=== PATIENT | male | born 1980 | race Asian ===

== ENCOUNTER 2017-05-09 08:34 | Emergency (ER) | payer OTHER, MEDICAID ==
--- NOTE | 2017-05-09 09:29 | ER Document Report ---
ED Medical Screen (RME) - General Chief Complaint: Probable Seizure Stated Complaint: POSSIBLE SEIZURE Time Seen by Provider: 05/09/17 09:24 Notes: RME DISCLOSURE I have seen this patient as part of a Rapid Medical Evaluation and, if applicable, placed any initially appropriate orders. The patient will be seen and fully evaluated, including a full history and physical exam, by a provider ( in Main ED or Fast Track) when a room becomes available. 36M pmh seizures on aptium and VPA here w reported sz earlier today. States it has been 1 year since his last seizure. He denies missing any doses of his medications. He does have a headache currently and states that he does not normally get headaches after his seizures. The family reports that this time he did not have any shaking but instead was "screaming and appeared to have a headache". TRAVEL OUTSIDE OF THE [place] IN LAST 30 DAYS: No - Related Data Allergies/Adverse Reactions: No Known Allergies Allergy (Verified 05/09/17 08:40) Past Medical History Neurological Medical History: Reports: Hx Seizures Renal/ Medical History: Reports: Hx Kidney Stones Past Surgical History: Reports: Hx Neurologic Surgery - Brain abscess and vagal nerve stimulator. - Immunizations Hx Diphtheria, Pertussis, Tetanus Vaccination: No - unknown Physical Exam - Vital signs Vitals: Temp Pulse Resp BP Pulse Ox 95.4 F L 55 L 16 120/73 98 05/09/17 08:48 05/09/17 08:48 05/09/17 08:48 05/09/17 08:48 05/09/17 08:48 Course - Vital Signs Vital signs: Temp Pulse Resp BP Pulse Ox 95.4 F L 55 L 16 120/73 98 05/09/17 08:48 05/09/17 08:48 05/09/17 08:48 05/09/17 08:48 05/09/17 08:48
--- NOTE | 2017-05-09 10:08 | ER Document Report ---
ED General - General Chief Complaint: Probable Seizure Stated Complaint: POSSIBLE SEIZURE Time Seen by Provider: 05/09/17 09:24 Information source: Patient Notes: HPI-36 years old male with a history of seizure disorder, had a glass of wine last night, early this morning eating he had a seizure, because he woke up and went to the bathroom on the way back he felt like a sleepwalking and then found him on the floor. Currently has no headache dizziness neck pain neck stiffness chest pain abdominal pain nausea vomiting diarrhea. Denies any pain over the upper limbs or lower limbs. REVIEW OF SYSTEMS: CONSTITUTIONAL : Denies fever, chills, or sweats. Denies recent illness. EENT: Denies eye, ear, throat, or mouth pain or symptoms. Denies nasal or sinus congestion or discharge. Denies throat, tongue, or mouth swelling or difficulty swallowing. CARDIOVASCULAR: Denies chest pain. Denies palpitations or racing or irregular heart beat. Denies ankle edema. RESPIRATORY: Denies cough, cold, or chest congestion. Denies shortness of breath, difficulty breathing, or wheezing. GASTROINTESTINAL: Denies abdominal pain or distention. Denies nausea, vomiting , or diarrhea. Denies blood in vomitus, stools, or per rectum. Denies black, tarry stools. Denies constipation. GENITOURINARY: Denies difficulty urinating, painful urination, burning, frequency, blood in urine, or discharge. MUSCULOSKELETAL: Denies back or neck pain or stiffness. Denies joint pain or swelling. SKIN: Denies rash, lesions or sores. HEMATOLOGIC : Denies easy bruising or bleeding. LYMPHATIC: Denies swollen, enlarged glands. NEUROLOGICAL: Denies confusion or altered mental status. Denies passing out or loss of consciousness. Denies dizziness or lightheadedness. Denies headache. Denies weakness or paralysis or loss of use of either side. Denies problems with gait or speech. Denies sensory loss, numbness, or tingling. Denies seizures. PSYCHIATRIC: Denies anxiety or stress. Denies depression, suicidal ideation, or homicidal ideation. ALL OTHER SYSTEMS REVIEWED AND NEGATIVE. Dictation was performed using [employer] voice recognition software PHYSICAL EXAMINATION: GENERAL: Well-appearing, well-nourished and in no acute distress. HEAD: Atraumatic, normocephalic. EYES: Pupils equal round and reactive to light, extraocular movements intact, sclera anicteric, conjunctiva are normal. ENT: Nares patent, oropharynx clear without exudates. Moist mucous membranes. NECK: Normal range of motion, supple without lymphadenopathy LUNGS: Breath sounds clear to auscultation bilaterally and equal. No wheezes rales or rhonchi. HEART: Regular rate and rhythm without murmurs ABDOMEN: Soft, nontender, nondistended abdomen. No guarding, no rebound. No masses appreciated. Musculoskeletal: Normal range of motion, no pitting or edema. No cyanosis. NEUROLOGICAL: Cranial nerves grossly intact. Normal speech, normal gait. Normal sensory, motor exams PSYCH: Normal mood, normal affect. SKIN: Warm, Dry, normal turgor, no rashes or lesions noted. TRAVEL OUTSIDE OF THE [place] IN LAST 30 DAYS: No - HPI Onset: Just prior to arrival Onset/Duration: Sudden Quality of pain: No pain Severity: None Associated symptoms: None. denies: Allergy/hay fever, Body/muscle aches, Chest pain, Chills, Nonproductive cough, Productive cough, Diarrhea, Drooling, Earache , Fever, Headache, Hoarseness, Hurts to breath, Leg swelling, Nausea, Vomiting, Rhinnorhea, Sinus pain/drainage, Shortness of breath, Slow to respond, Sore throat, Sweating, Weakness, Other Exacerbated by: denies: Denies, Supine, Sitting, Standing, Movement, Walking, Coughing, Deep breathing, Food, Other - Related Data Allergies/Adverse Reactions: No Known Allergies Allergy (Verified 05/09/17 08:40) Past Medical History - Social History Smoking Status: Current Every Day Smoker Chew tobacco use (# tins/day): No Frequency of alcohol use: Occasional Drug Abuse: None Family History: Reviewed & Not Pertinent Patient has suicidal ideation: No Patient has homicidal ideation: No Neurological Medical History: Reports: Hx Seizures Renal/ Medical History: Reports: Hx Kidney Stones. Denies: Hx Peritoneal Dialysis Past Surgical History: Reports: Hx Neurologic Surgery - Brain abscess and vagal nerve stimulator. - Immunizations Hx Diphtheria, Pertussis, Tetanus Vaccination: No - unknown Review of Systems - Review of Systems Notes: As per history of complain EENT: denies: No symptoms reported, See HPI, Eye pain, Eye discharge, Blurred vision, Tearing, Double vision, Ear pain, Ear discharge, Nose pain, Nose congestion, Nose discharge, Sinus pressure, Sinus discharge, Throat pain, Difficulty swallowing, Throat swelling, Mouth pain, Mouth swelling, Dental problem, Vertigo, Other Cardiovascular: denies: No symptoms reported, See HPI, Chest pain, Palpitations , Heart racing, Orthopnea, Dyspnea, Syncope, Dizziness, Lightheaded, Edema, Other, Paroxysmal Nocturnal Dysp Respiratory: denies: No symptoms reported, See HPI, Cough, Hurts to breathe, Hemoptysis, Short of breath, Sputum, Stridor, Wheezing, Other Gastrointestinal: denies: No symptoms reported, See HPI, Abdomen distended, Abdominal pain, Diarrhea, Nausea, Vomiting, Constipation, Blood streaked bowels , Poor appetite, Poor fluid intake, Blood in vomit, Black stools, Rectal bleeding, Last bowel movement, Fecal incontinence, Other Genitourinary: denies: No symptoms reported, See HPI, Burning, Dysuria, Discharge, Frequency, Flank pain, Hematuria, Incontinence, Pain, Urgency, Retention, Other Male Genitourinary: denies: No symptoms reported, See HPI, Erectile dysfunction , Testicular pain, Penile discharge, Other Musculoskeletal: denies: No symptoms reported, See HPI, Back pain, Gout, Joint pain, Joint swelling, Muscle pain, Muscle stiffness, Neck pain, Deformity, Leg swelling, Ankle swelling, Other Skin: denies: No symptoms reported, See HPI, Change in color, Change in hair/ nails, Dryness, Lesions, Lumps, Rash, Other Hematologic/Lymphatic: denies: No symptoms reported, See HPI, Anemia, Blood clots, Easy bleeding, Easy bruising, Enlarged lymph nodes, Swollen glands, Other Physical Exam - Vital signs Vitals: Temp Pulse Resp BP Pulse Ox 95.4 F L 55 L 16 120/73 98 05/09/17 08:48 05/09/17 08:48 05/09/17 08:48 05/09/17 08:48 05/09/17 08:48 Course - Re-evaluation Re-evalutation: 05/09/17 11:59 Given IV fluid - Vital Signs Vital signs: Temp Pulse Resp BP Pulse Ox 95.4 F L 55 L 16 120/73 98 05/09/17 08:48 05/09/17 08:48 05/09/17 08:48 05/09/17 08:48 05/09/17 08:48 - Laboratory Result Diagrams: 05/09/17 10:22 05/09/17 10:22 Laboratory results interpreted by me: 05/09/17 05/09/17 10:22 10:22 WBC 12.2 H MCV 98 H Absolute Neutrophils 9.3 H Carbon Dioxide 33 H Valproic Acid 22.6 L Discharge - Discharge Clinical Impression: Seizure disorder, Cannabis abuse Condition: Fair Disposition: HOME, SELF-CARE Instructions: Seizure, Known Epileptic (FORM[facility]LY [facility], 1928–1983)
--- NOTE | 2017-05-09 10:14 | RADIOLOGY REPORT (SQ) ---
EXAM DESCRIPTION: CT HEAD WITHOUT COMPLETED DATE/TIME: 05/09/2017 10:02 am REASON FOR STUDY: ALCANTARA seizure; eval bleed mass COMPARISON: 01/11/2014 TECHNIQUE: Axial images acquired through the brain without intravenous contrast. Images reviewed wi th bone, brain and subdural windows. Images stored on PACS. All CT scanners at this facility use dose modulation, iterative reconstruction, and/or weight based d osing when appropriate to reduce radiation dose to as low as reasonably achievable (ALARA). [facility]: Dose Right [facility]: CareDose [facility]: Dose Right [facility]: Teradose 4D [facility]: [facility] RADIATION DOSE: CT Rad equipment meets quality standard of care and radiation dose reduction techniq ues were employed. CTDIvol: 64.6 mGy. DLP: 1163 mGy-cm.mGy. LIMITATIONS: None. FINDINGS: VENTRICLES: Prominent. CEREBRUM: No masses. No hemorrhage. No midline shift. Old right MCA territory infarct. Areas of l ow density in the white matter most likely due to chronic micro-vascular ischemic change. No evidenc e for acute infarction. CEREBELLUM: No masses. No hemorrhage. No alteration of density. No evidence for acute infarction. EXTRAAXIAL SPACES: Age-related involutional change. No fluid collections. No masses. ORBITS AND GLOBE: No intra- or extraconal masses. Normal contour of globe without masses. CALVARIUM: No fracture. PARANASAL SINUSES: No fluid or mucosal thickening. SOFT TISSUES: No mass or hematoma. OTHER: No other significant finding. IMPRESSION: CHRONIC CHANGES OF ATROPHY AND MICROVASCULAR ISCHEMIA. NO ACUTE PROCESS. EVIDENCE OF ACUTE STROKE: NO. TECHNICAL DOCUMENTATION: JOB ID: [id number] Quality ID # [id number]: Final reports with documentation of one or more dose reduction techniques (e.g., Au tomated exposure control, adjustment of the mA and/or kV according to patient size, use of iterative reconstruction technique) 2010 [employer]- All Rights Reserved Reading location - IP/workstation name: [email or web address]
[2017-05-09 10:29] LABS: ABSOLUTE LYMPHOCYTES (AUTO) 2.1 10^3/uL (0.5-4.7); ABSOLUTE MONOCYTES (AUTO) 0.7 10^3/uL (0.1-1.4); ABSOLUTE NEUT (AUTO) 9.3 10^3/uL (1.7-8.2); BASOPHILS % (AUTO) 0.4 % (0-2); EOSINOPHILS % (AUTO) 0.2 % (0-6); HEMATOCRIT 49.3 % (37.9-51.0); HEMOGLOBIN 16.8 g/dL (13.5-17.0); LYMPHOCYTES % (AUTO) 17.1 % (13-45); MEAN CORPUSCULAR HEMOGLOBIN 33.3 pg (27.0-33.4); MEAN CORPUSCULAR HGB CONC 34.1 g/dL (32.0-36.0); MEAN CORPUSCULAR VOLUME 98 fl (80-97); MONOCYTES % (AUTO) 5.9 % (3-13); PLATELET COUNT 215 10^3/uL (150-450); RED BLOOD COUNT 5.04 10^6/uL (4.35-5.55); RED CELL DISTRIBUTION WIDTH 13.8 % (11.5-14.0); SEGMENTED NEUTROPHILS % (AUTO) 76.4 % (42-78); TOTAL CELLS COUNTED % (AUTO) 100 %; WHITE BLOOD COUNT 12.2 10^3/uL (4.0-10.5)
[2017-05-09 10:48] LABS: ALANINE AMINOTRANSFERASE 24 U/L (21-72); ALKALINE PHOSPHATASE 49 U/L (38-126); ANION GAP 9 (5-19); ASPARTATE AMINO TRANSFERASE 26 U/L (17-59); BILIRUBIN,DIRECT 0.1 mg/dL (0.0-0.4); BILIRUBIN,TOTAL 0.3 mg/dL (0.2-1.3); BLOOD UREA NITROGEN 18 mg/dL (7-20); CALCIUM 10.2 mg/dL (8.4-10.2); CARBON DIOXIDE 33 mmol/L (22-30); CHLORIDE 101 mmol/L (98-107); GLUCOSE 106 mg/dL (75-110); PHOSPHORUS 2.7 mg/dL (2.5-4.5); POTASSIUM 4.2 mmol/L (3.6-5.0); SODIUM 143.4 mmol/L (137-145); TOTAL PROTEIN 7.7 g/dL (6.3-8.2)
[2017-05-09 11:05] LABS: URINE AMPHETAMINES SCREEN NEGATIVE; URINE BARBITURATES SCREEN NEGATIVE; URINE COCAINE SCREEN NEGATIVE; URINE MARIJUANA (THC) SCREEN UNCONFIRMED POSITIVE; URINE METHADONE SCREEN NEGATIVE; URINE PHENCYCLIDINE SCREEN NEGATIVE
[2017-05-09 11:14] LABS: URINE BENZODIAZEPINES SCREEN NEGATIVE
[2017-05-09 14:38] VITALS: BP 118/79
== END 2017-05-09 14:38 | disposition home or self-care (01) ==
LOC: ER 08:34
DX: G40.909 Epilepsy, unspecified, not intractable, without status epilepticus (principal); F12.10 Cannabis abuse, uncomplicated; F17.200 Nicotine dependence, unspecified, uncomplicated
CPT/HCPCS: 36415; 70450; 80053; 80164; 80307; 83735; 84100; 85025; 99284

== ENCOUNTER 2017-07-26 15:19 | Emergency (ER) | payer OTHER, MEDICAID ==
[2017-07-26] MEDS ORDERED: LEVETIRACETAM 1000 MG/NACL-ISO 1,000 MG/100 ML RTUPB IV ONE (16:14)
[2017-07-26] MEDS ORDERED: NORMAL SALINE 1000 ML 1,000 ML IV ONE (16:14)
[2017-07-26] MEDS ORDERED: ONDANSETRON 4 MG TAB.RAPDIS PO ONE (16:14)
--- NOTE | 2017-07-26 16:16 | ER Document Report ---
ED Medical Screen (RME) - General Chief Complaint: Seizure Stated Complaint: VOMITING Time Seen by Provider: 07/26/17 16:15 TRAVEL OUTSIDE OF THE [place] IN LAST 30 DAYS: No - HPI Notes: 07/26/17 16:15 Patient with 2 seizures a last seizure was in April unable take his antiseizure medication today because of nausea vomiting symptoms for IV hydration and anti- emetics. Will give the patient a dose of Keppra lives here in ER. Takes Actonel and Depakote - Related Data Allergies/Adverse Reactions: No Known Allergies Allergy (Verified 07/26/17 16:12) Past Medical History - Social History Chew tobacco use (# tins/day): No Frequency of alcohol use: Occasional Drug Abuse: None Neurological Medical History: Reports: Hx Seizures Renal/ Medical History: Reports: Hx Kidney Stones. Denies: Hx Peritoneal Dialysis Past Surgical History: Reports: Hx Neurologic Surgery - Brain abscess and vagal nerve stimulator. - Immunizations Hx Diphtheria, Pertussis, Tetanus Vaccination: No - unknown Review of Systems - Review of Systems Gastrointestinal: Diarrhea, Nausea Physical Exam - Vital signs Vitals: Temp Pulse Resp BP Pulse Ox 98.7 F 48 L 20 134/72 H 99 07/26/17 15:31 07/26/17 15:31 07/26/17 15:31 07/26/17 15:31 07/26/17 15:31 - Respiratory Respiratory status: No respiratory distress Chest status: Nontender Breath sounds: Normal Chest palpation: Normal Course - Vital Signs Vital signs: Temp Pulse Resp BP Pulse Ox 98.7 F 48 L 20 134/72 H 99 07/26/17 15:31 07/26/17 15:31 07/26/17 15:31 07/26/17 15:31 07/26/17 15:31
[2017-07-26 16:38] LABS: ABSOLUTE BASOPHILS # (AUTO) 0.1 10^3/uL (0.0-0.2); ABSOLUTE MONOCYTES (AUTO) 0.7 10^3/uL (0.1-1.4); ABSOLUTE NEUT (AUTO) 10.5 10^3/uL (1.7-8.2); BASOPHILS % (AUTO) 0.7 % (0-2); EOSINOPHILS % (AUTO) 0.2 % (0-6); HEMATOCRIT 46.8 % (37.9-51.0); HEMOGLOBIN 15.9 g/dL (13.5-17.0); LYMPHOCYTES % (AUTO) 14.6 % (13-45); MEAN CORPUSCULAR HEMOGLOBIN 33.3 pg (27.0-33.4); MEAN CORPUSCULAR HGB CONC 34.1 g/dL (32.0-36.0); MEAN CORPUSCULAR VOLUME 98 fl (80-97); MONOCYTES % (AUTO) 5.5 % (3-13); PLATELET COUNT 237 10^3/uL (150-450); RED BLOOD COUNT 4.79 10^6/uL (4.35-5.55); RED CELL DISTRIBUTION WIDTH 13.7 % (11.5-14.0); TOTAL CELLS COUNTED % (AUTO) 100 %; WHITE BLOOD COUNT 13.3 10^3/uL (4.0-10.5)
[2017-07-26] MEDS ORDERED: METOCLOPRAMIDE HCL INJ/PF 10 MG/2 ML SDV IV ONE (17:28)
--- NOTE | 2017-07-26 17:28 | ER Document Report ---
ED General - General Mode of Arrival: Medic Information source: Patient TRAVEL OUTSIDE OF THE [place] IN LAST 30 DAYS: No <ART SHABAZZ - Last Filed: 07/26/17 19:57> <ARNOL VASQUES - Last Filed: 07/26/17 20:54> - General Chief Complaint: Seizure Stated Complaint: VOMITING Time Seen by Provider: 07/26/17 16:15 Notes: Patient is a 37 year old male with epilepsy presents to the emergency department complaining of a possible seizure onset this morning and vomiting onset last night. Patient states that he has had a decreased appetite lately due to stress and when he does eat, he proceeds to vomit. He further states he may have missed one of his seizure medications last night. During his seizure this morning, patient states he felt like he may have pulled his shoulder. Patient is currently taking Aptiom and Depakote. (ART SHABAZZ) - Related Data Allergies/Adverse Reactions: No Known Allergies Allergy (Verified 07/26/17 16:12) Past Medical History - General Information source: Patient - Social History Smoking Status: Current Every Day Smoker Chew tobacco use (# tins/day): No Frequency of alcohol use: Occasional Drug Abuse: Marijuana - States he quit 3 months ago as of 07/26/2017 Family History: Reviewed & Not Pertinent Patient has suicidal ideation: No Patient has homicidal ideation: No Neurological Medical History: Reports: Hx Seizures Renal/ Medical History: Reports: Hx Kidney Stones. Denies: Hx Peritoneal Dialysis Past Surgical History: Reports: Hx Neurologic Surgery - Brain abscess and vagal nerve stimulator. - Immunizations Hx Diphtheria, Pertussis, Tetanus Vaccination: No - unknown <ART SHABAZZ - Last Filed: 07/26/17 19:57> Review of Systems - Review of Systems Constitutional: No symptoms reported EENT: No symptoms reported Cardiovascular: No symptoms reported Respiratory: No symptoms reported Gastrointestinal: See HPI, Nausea, Vomiting Genitourinary: No symptoms reported Male Genitourinary: No symptoms reported Musculoskeletal: No symptoms reported Skin: No symptoms reported Hematologic/Lymphatic: No symptoms reported Neurological/Psychological: See HPI, Seizure -: Yes All other systems reviewed and negative <ART SHABAZZ - Last Filed: 07/26/17 19:57> Physical Exam - General General appearance: Appears well, Alert, Other - Shivering at bedside In distress: None - HEENT Head: Normocephalic, Atraumatic Mucous membranes: Dry - Respiratory Respiratory status: No respiratory distress Chest status: Nontender Breath sounds: Normal Chest palpation: Normal - Cardiovascular Rhythm: Regular Heart sounds: Normal auscultation Murmur: No Friction rub: No Gallop: None auscultated - Abdominal Inspection: Normal Distension: No distension Bowel sounds: Normal Tenderness: Nontender Organomegaly: No organomegaly - Back Back: Normal - Extremities General upper extremity: Normal ROM General lower extremity: Normal ROM - Neurological Neuro grossly intact: Yes Cognition: Normal Orientation: AAOx4 [place] Coma Scale Eye Opening: Spontaneous [place] Coma Scale Verbal: Oriented Yenni Coma Scale Motor: Obeys Commands Eynni Coma Scale Total: 15 Speech: Normal - Psychological Associated symptoms: Normal affect, Normal mood - Skin Skin Temperature: Warm Skin Moisture: Dry Skin Color: Normal <ART SHABAZZ - Last Filed: 07/26/17 19:57> - Vital signs Vitals: Temp Pulse Resp BP Pulse Ox 98.7 F 48 L 20 134/72 H 99 07/26/17 15:31 07/26/17 15:31 07/26/17 15:31 07/26/17 15:31 07/26/17 15:31 Course - Laboratory Result Diagrams: 07/26/17 16:25 07/26/17 18:08 <ART SHABAZZ - Last Filed: 07/26/17 19:57> - Laboratory Result Diagrams: 07/26/17 16:25 07/26/17 18:08 <ARNOL VASQUES - Last Filed: 07/26/17 20:54> - Re-evaluation Re-evalutation: 07/26/17 20:50 Patient did have a subtherapeutic Depakote level which is the likely reason he had a seizure today. He states his nauseousness is much better after receiving Zofran earlier. He is comfortable going home. He will be given a dose of Depakote now and instructed to take his Depakote and his Aptiom this evening before he goes to bed. (ARNOL VASQUES) - Vital Signs Vital signs: Temp Pulse Resp BP Pulse Ox 99.8 F 56 L 18 111/58 L 99 07/26/17 19:58 07/26/17 19:58 07/26/17 19:58 07/26/17 19:58 07/26/17 19:58 - Laboratory Laboratory results interpreted by me: 07/26/17 07/26/17 16:25 18:08 WBC 13.3 H MCV 98 H Seg Neutrophils % 79.0 H Absolute Neutrophils 10.5 H Sodium 147.3 H Chloride 109 H ALT 16 L Valproic Acid 37.5 L Discharge <ART SHABAZZ - Last Filed: 07/26/17 19:57> <ARNOL VASQUES - Last Filed: 07/26/17 20:54> - Discharge Clinical Impression: Seizure, Subtherapeutic Depakote level Nausea and vomiting Qualifiers: Vomiting type: unspecified Vomiting Intractability: non-intractable Qualified Code(s): R11.2 - Nausea with vomiting, unspecified Condition: Stable Disposition: HOME, SELF-CARE Additional Instructions: Seizure, Known Epileptic: You have had a seizure. Seizures may "break through" in an epileptic due to stress of infection or injury, a change in blood chemistry, or drug and alcohol use. Another common cause is failure to take medication as prescribed. Your doctor has evaluated your situation for the likely cause of this seizure. It is important that you follow his advice concerning any medication changes and follow-up care. Further testing of anti-seizure medication levels in your blood may be necessary. 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 This seizure must be reported to the truck driver teamster 's license bureau. Call the doctor or return if seizures recur, or if new or unusual symptoms arise -- such as severe headache, confusion, excessive sleepiness, local weakness or numbness, neck stiffness, or fever. Nausea or Vomiting, Nonspecific: Vomiting (or nausea without vomiting) can be caused by many different problems. Of course, it can mean that something's wrong with the stomach, such as "stomach flu," ulcers, or inflammation. But it can also be a symptom of a problem that has nothing to do with the stomach or intestines. Vomiting is common with severe headaches, earaches, and tonsillitis. We see it with pneumonia or heart attacks. Drugs can cause nausea. Many abdominal problems cause vomiting; for example, gallstones, kidney stones, pancreatitis, and intestinal obstruction (blocked bowels). In most cases, curing the vomiting depends on fixing the problem that caused it. For temporary relief, we may use an anti-nausea medicine. For home use, we can prescribe suppositories, chewable pills, pills that dissolve in the mouth, or liquid anti-nausea drugs. If the vomiting seems to be caused by a problem in the stomach, acid-suppressing drugs may be prescribed as well. It's important to avoid dehydration. Sip clear liquids. Take increasing amounts of fluid over the first 24 hours. Then start small amounts of bland foods (such as dry toast, applesauce, mashed potato). Avoid aspirin, tobacco, and alcohol. Gradually resume your usual diet. If the vomiting worsens, if the problem that's making you vomit worsens, or if there's evidence of bleeding in the stomach (such as black, tarry stool, bloody or black vomit, or lightheadedness), you should return immediately. Call your doctor if you aren't improved in 24 to 36 hours. Take Zofran for nausea if needed. Take your Depakote and Aptiom tonight before going to bed. Be sure not to miss any doses of your seizure medication tomorrow. Drink small sips of cool clear liquids. Follow-up with your doctor if not improving. RETURN TO THE EMERGENCY ROOM IF ANY NEW OR WORSENING SYMPTOMS. Scribe Attestation: 07/26/17 18:15 I personally performed the services described in the documentation, reviewed and edited the documentation which was dictated to the scribe in my presence, and it accurately records my words and actions. (ARNOL VASQUES) Scribe Documentation - Scribe Written by Mary:: Mary Andrea, 07/26/2017 17:37 acting as scribe for :: Betina <ART SHABAZZ - Last Filed: 07/26/17 19:57>
[2017-07-26 18:35] LABS: ALANINE AMINOTRANSFERASE 16 U/L (21-72); ALBUMIN 4.1 g/dL (3.5-5.0); ALKALINE PHOSPHATASE 44 U/L (38-126); ANION GAP 11 (5-19); ASPARTATE AMINO TRANSFERASE 25 U/L (17-59); BILIRUBIN,DIRECT 0.3 mg/dL (0.0-0.4); BILIRUBIN,TOTAL 0.3 mg/dL (0.2-1.3); BLOOD UREA NITROGEN 14 mg/dL (7-20); CARBON DIOXIDE 27 mmol/L (22-30); CHLORIDE 109 mmol/L (98-107); GLUCOSE 81 mg/dL (75-110); POTASSIUM 4.6 mmol/L (3.6-5.0); SODIUM 147.3 mmol/L (137-145); TOTAL PROTEIN 6.3 g/dL (6.3-8.2)
[2017-07-26] MEDS ORDERED: DIVALPROEX SODIUM 250 MG TABLET.DR PO ONE (20:20)
[2017-07-26] MEDS ORDERED: ONDANSETRON ODT 4 MG TAB (6 TAB/ER DISP) PO PRN (20:50)
[2017-07-26 21:12] VITALS: BP 108/53
== END 2017-07-26 21:12 | disposition home or self-care (01) ==
LOC: ER 15:19
DX: G40.909 Epilepsy, unspecified, not intractable, without status epilepticus (principal); Z79.899 Other long term (current) drug therapy; R11.2 Nausea with vomiting, unspecified; F43.9 Reaction to severe stress, unspecified; R63.0 Anorexia; F17.200 Nicotine dependence, unspecified, uncomplicated
CPT/HCPCS: 99284; 36415; 85025; 80053; 80164; S0119; J7030; J1953

== ENCOUNTER 2018-01-08 20:45 | Emergency (ER) | payer OTHER, MEDICARE, MEDICAID ==
--- NOTE | 2018-01-08 21:14 | ER Document Report ---
ED General - General Stated Complaint: POSSIBLE SEIZURE Time Seen by Provider: 01/08/18 21:02 Notes: Patient is a 37-year-old male that comes to the emergency department for chief complaint of seizure activity and per EMS combative behavior. Gerald has told nursing staff that they arrived to the scene and were told that patient has been having seizure on unknown amount time, he had fallen down onto the grass, coronary they state that patient became combative and was fighting them when they tried to put a c-collar on him. Subsequently patient was given 5 mg Valium and 5 mg of Haldol IM. Patient is now very drowsy, he states he has a history of seizure disorder, he is on Depakote and another medication he cannot recall he cannot recall the month, year, he does identify he is in the hospital. He cannot remember what happened. No friends or family at bedside at this time. TRAVEL OUTSIDE OF THE [place] IN LAST 30 DAYS: No - Related Data Allergies/Adverse Reactions: No Known Allergies Allergy (Verified 07/26/17 16:12) Past Medical History - General Information source: Patient - Social History Smoking Status: Never Smoker Drug Abuse: None Lives with: Family Family History: Reviewed & Not Pertinent Neurological Medical History: Reports: Hx Seizures Renal/ Medical History: Reports: Hx Kidney Stones. Denies: Hx Peritoneal Dialysis Past Surgical History: Reports: Hx Neurologic Surgery - Brain abscess and vagal nerve stimulator. - Immunizations Hx Diphtheria, Pertussis, Tetanus Vaccination: Yes - unknown Review of Systems - Review of Systems Constitutional: No symptoms reported EENT: No symptoms reported Cardiovascular: No symptoms reported Respiratory: No symptoms reported Gastrointestinal: No symptoms reported Genitourinary: No symptoms reported Male Genitourinary: No symptoms reported Musculoskeletal: See HPI Skin: No symptoms reported Hematologic/Lymphatic: No symptoms reported Neurological/Psychological: See HPI Physical Exam - Vital signs Vitals: Resp 21 H 01/08/18 21:20 - Notes Notes: GENERAL: Drowsy, arousable, confused HEAD: Normocephalic, atraumatic. EYES: Pupils equal, round, and reactive to light. Extraocular movements intact. ENT: Oral mucosa moist, tongue midline. Oropharynx unremarkable. Did not bite tongue. Airway patent. Nares patent, no nasal septal hematoma, TM's intact. NECK: Full range of motion. Supple. Trachea midline. LUNGS: Clear to auscultation bilaterally, no wheezes, rales, or rhonchi. No respiratory distress. HEART: Regular rate and rhythm. No murmur ABDOMEN: Soft, non-tender. Non-distended. Bowel sounds present in all 4 quadrants. GENITOURINARY: Deferred EXTREMITIES: Moves all 4 extremities spontaneously. No edema, normal radial and dorsalis pedis pulses bilaterally. No cyanosis. BACK: no cervical, thoracic, lumbar midline tenderness. No saddle anesthesia, normal distal neurovascular exam. NEUROLOGICAL: Drowsy and confused. Normal speech. [cranial nerves II through XII grossly intact]. PSYCH: Normal affect, normal mood. SKIN: Warm, dry, normal turgor. No rashes or lesions noted. Course - Re-evaluation Re-evalutation: Initially unsure of patient's seizure medications except for Depakote, he was started on Keppra bolus. Patient is postictal and somewhat sedated on my evaluation. He is confused and cannot remember what happened. Per records patient is on Aptiom and Depakote for seizure disorder, he also has a history of kidney stones, difficult to tell if he is postictal because he was given Haldol and Versed. No fever, no tachycardia, with me patient is drowsy but cooperative. No neurologic deficits noted otherwise. Coworker came to bedside, states that patient was being held by the arm and lowered to the ground on the grass when he started having a seizure, states he had a seizure for almost 10 minutes. States she has a history of seizures and she has seen multiple seizures in the past. Father in route. No fever, tachycardia, hypertension, hypotension, or hypoxia. CBC, chemistry, magnesium, alcohol unremarkable. Depakote is slightly low at 44.6, drug screen analyzer is down and will not result at this time, this was canceled. On reevaluation patient is now alert, conversational, oriented, he does not remember the events but he is oriented otherwise. Father is at bedside. They state that patient has a long seizure history, they are used to this, patient with no complaints including no headache, no nuchal rigidity, no complaints of pain from trauma. Discussed with Dr. Meehan. Family is requesting to leave at this time. They have excellent neurology follow-up. He would be double dosed Depakote for tomorrow. Discussed return precautions. They state understanding and agreement. - Vital Signs Vital signs: Temp Pulse Resp BP Pulse Ox 98.1 F 15 122/65 98 01/09/18 00:25 01/09/18 00:09 01/09/18 00:01 01/09/18 00:09 - Laboratory Result Diagrams: 01/08/18 21:08 01/08/18 22:00 Laboratory results interpreted by me: 01/08/18 01/08/18 21:08 22:00 RBC 4.09 L MCH 33.8 H Sodium 145.3 H ALT 13 L Salicylates < 1.0 L Acetaminophen < 10 L Valproic Acid 44.6 L Discharge - Discharge Clinical Impression: Seizure Epilepsy Qualifiers: Epilepsy type: unspecified Intractability: not intractable Status epilepticus: without status epilepticus Qualified Code(s): G40.909 - Epilepsy, unspecified, not intractable, without status epilepticus Condition: Stable Disposition: HOME, SELF-CARE Additional Instructions: Your depakote level is subtherapeutic at 44.6 tonight. Your remaining evaluation does not show any concerning abnormalities. Double your Depakote dose for a single day tomorrow. Follow-up closely with your neurologist for additional evaluation and management. Return for any concerning or worsening symptoms including repeat seizures, fever , or any other concerning or worsening symptoms. Forms: Return to Work
[2018-01-08] MEDS ORDERED: LEVETIRACETAM 1500 MG/NACL-ISO 1,500 MG/100 ML RTUPB IV ONE (21:15)
[2018-01-08 21:20] LABS: ABSOLUTE BASOPHILS # (AUTO) 0.1 10^3/uL (0.0-0.2); ABSOLUTE EOSINOPHILS # (AUTO) 0.1 10^3/uL (0.0-0.6); ABSOLUTE LYMPHOCYTES (AUTO) 2.6 10^3/uL (0.5-4.7); ABSOLUTE MONOCYTES (AUTO) 0.4 10^3/uL (0.1-1.4); ABSOLUTE NEUT (AUTO) 4.3 10^3/uL (1.7-8.2); BASOPHILS % (AUTO) 1.3 % (0-2); EOSINOPHILS % (AUTO) 1.4 % (0-6); HEMATOCRIT 39.6 % (37.9-51.0); HEMOGLOBIN 13.8 g/dL (13.5-17.0); LYMPHOCYTES % (AUTO) 34.8 % (13-45); MEAN CORPUSCULAR HEMOGLOBIN 33.8 pg (27.0-33.4); MEAN CORPUSCULAR HGB CONC 34.9 g/dL (32.0-36.0); MEAN CORPUSCULAR VOLUME 97 fl (80-97); PLATELET COUNT 197 10^3/uL (150-450); RED BLOOD COUNT 4.09 10^6/uL (4.35-5.55); RED CELL DISTRIBUTION WIDTH 13.2 % (11.5-14.0); SEGMENTED NEUTROPHILS % (AUTO) 57.5 % (42-78); TOTAL CELLS COUNTED % (AUTO) 100 %; WHITE BLOOD COUNT 7.4 10^3/uL (4.0-10.5)
[2018-01-08] MEDS ORDERED: LEVETIRACETAM 500 MG/NACL-ISO 500 MG/100 ML RTUPB IV ONE (21:41)
[2018-01-08] MEDS ORDERED: LEVETIRACETAM 1000 MG/NACL-ISO 1,000 MG/100 ML RTUPB IV ONE (21:42)
[2018-01-08 22:32] LABS: ALANINE AMINOTRANSFERASE 13 U/L (21-72); ALBUMIN 4.3 g/dL (3.5-5.0); ALKALINE PHOSPHATASE 50 U/L (38-126); ANION GAP 12 (5-19); ASPARTATE AMINO TRANSFERASE 29 U/L (17-59); BILIRUBIN,DIRECT 0.1 mg/dL (0.0-0.4); BILIRUBIN,TOTAL 0.2 mg/dL (0.2-1.3); BLOOD UREA NITROGEN 13 mg/dL (7-20); CALCIUM 9.9 mg/dL (8.4-10.2); CARBON DIOXIDE 29 mmol/L (22-30); CHLORIDE 104 mmol/L (98-107); GLUCOSE 92 mg/dL (75-110); POTASSIUM 3.9 mmol/L (3.6-5.0); SODIUM 145.3 mmol/L (137-145)
[2018-01-08 22:38] LABS: ACETAMINOPHEN < 10 ug/mL (10-30); ALCOHOL < 10 mg/dL (NONE DETECTED); SALICYLATE < 1.0 mg/dL (2.0-20.0)
[2018-01-08 22:41] LABS: APPEARANCE,URINE CLEAR; BILIRUBIN,URINE NEGATIVE (NEGATIVE); COLOR,URINE YELLOW; GLUCOSE, URINE NEGATIVE (NEGATIVE); KETONES,URINE NEGATIVE (NEGATIVE); LEUKOCYTE ESTERASE,URINE NEGATIVE (NEGATIVE); NITRITE,URINE NEGATIVE (NEGATIVE); PROTEIN,URINE NEGATIVE (NEGATIVE); URINE SPECIFIC GRAVITY 1.015; UROBILINOGEN,URINE NEGATIVE mg/dL (<2.0)
[2018-01-09 00:10] VITALS: BP 122/65
[2018-01-09 00:42] LABS: URINE AMPHETAMINES SCREEN NEGATIVE; URINE BARBITURATES SCREEN NEGATIVE; URINE BENZODIAZEPINES SCREEN UNCONFIRMED POSITIVE; URINE COCAINE SCREEN NEGATIVE; URINE MARIJUANA (THC) SCREEN UNCONFIRMED POSITIVE; URINE METHADONE SCREEN NEGATIVE; URINE PHENCYCLIDINE SCREEN NEGATIVE
--- NOTE | 2018-01-09 07:52 | EKG REPORT ---
SEVERITY:- BORDERLINE ECG - SINUS RHYTHM CONSIDER [facility] OR POSTERIOR INFARCT : Confirmed by: Raj Porter MD 09-Jan-2018 07:50:47
== END 2018-01-09 00:30 | disposition home or self-care (01) ==
LOC: ER 20:45
DX: G40.909 Epilepsy, unspecified, not intractable, without status epilepticus (principal); Z79.899 Other long term (current) drug therapy; R41.0 Disorientation, unspecified; R40.0 Somnolence
CPT/HCPCS: 93005; 99284; 96365; 36415; 80307 ×4; 83735; 85025; 80053; 81001; 80164; 93010; J1953

== ENCOUNTER 2018-11-29 21:36 | Observation (INO) | payer OTHER, MEDICARE, MEDICAID ==
[2018-11-29] MEDS ORDERED: ONDANSETRON HCL INJ/PF 4 MG/2 ML SDV IV ONE (21:43)
--- NOTE | 2018-11-29 22:18 | ER Document Report ---
ED General - General Chief Complaint: Probable Seizure Stated Complaint: POSS SEIZURE Time Seen by Provider: 11/29/18 22:10 Primary Care Provider: [facility] [Provider Group] - Follow up tomorrow Notes: Patient is a 38-year-old male with a past medical history of epilepsy who presents the emergency department after a possible epileptic seizure. [place] and next thing he knew he woke up and some of his coworkers were helping him get up. Patient is unsure whether or not he had a seizure or not. Patient denies any pain at all. Patient states that he has not been eating or drinking or sleeping well. Patient is currently on divalproate ER 500 mg 4 times daily and Aptiom 800 mg daily. Patient denies any pain at this time. TRAVEL OUTSIDE OF THE [place] IN LAST 30 DAYS: No - Related Data Allergies/Adverse Reactions: No Known Allergies Allergy (Verified 07/26/17 16:12) Home Medications: Divalproex ER 500mg Nightly. Aptiom 800mg Nightly Past Medical History - Social History Smoking Status: Current Every Day Smoker Family History: Reviewed & Not Pertinent Patient has suicidal ideation: No Patient has homicidal ideation: No Neurological Medical History: Reports: Hx Seizures Renal/ Medical History: Reports: Hx Kidney Stones. Denies: Hx Peritoneal Dialysis Past Surgical History: Reports: Hx Neurologic Surgery - Brain abscess and vagal nerve stimulator. - Immunizations Hx Diphtheria, Pertussis, Tetanus Vaccination: Yes - unknown Review of Systems - Review of Systems Notes: REVIEW OF SYSTEMS: CONSTITUTIONAL : Denies recent illness. Denies recent unintentional weight loss. Denies fever, chills, or sweats. EENT: Denies eye, ear, throat, or mouth pain, discharge, or symptoms. Denies nasal or sinus congestion. CARDIOVASCULAR: Denies chest pain. RESPIRATORY: Denies shortness of breath, cough, congestion, difficulty breathin g, or wheezing. GASTROINTESTINAL: Denies nausea, vomiting, and diarrhea. Denies abdominal pain. Denies constipation. GENITOURINARY: Denies difficulty urinating, burning, blood in urine, urgency or frequency. MUSCULOSKELETAL: Denies neck and back pain. Denies joint pain or swelling. SKIN: Denies rash, itchiness, or lesions HEMATOLOGIC : Denies easy bruising or bleeding. LYMPHATIC: Denies swollen, painful, enlarged glands. NEUROLOGICAL: See HPI. PSYCHIATRIC: Denies stress, anxiety, alteration in sleep patterns, or depression. All other systems reviewed and negative. Physical Exam - Vital signs Vitals: Resp Pulse Ox 17 96 11/29/18 21:47 11/29/18 21:47 - Notes Notes: PHYSICAL EXAMINATION: GENERAL: Appears well, healthy, well-nourished, no acute distress. HEAD: Normocephalic, atraumatic. EYES: PERRL, conjunctiva normal, all extraocular movements intact, sclera nonicteric ENT: Moist mucous membranes. NECK: Supple, no noticeable swelling, redness, rash. Normal range of motion. LUNGS: Equal breath sounds bilaterally and clear to auscultation. No wheezes rales or rhonchi. CARDIOVASCULAR: S1-S2, regular rate, regular rhythm. Radial pulses 2+, normal. ABDOMEN: Normoactive bowel sounds. Soft, nontender, no guarding, no rebound tenderness, and no masses palpated. EXTREMITIES: Normal strength and range of motion, no pitting or edema. No cyanosis. NEUROLOGICAL: Moves all extremities upon command. Strength 5/5 in all extremities. PSYCH: Normal mood, normal affect. SKIN: Warm, dry. No rash, lesions, ulcerations noted. Normal skin turgor. Course - Re-evaluation Re-evalutation: 11/30/18 02:50 patient's chemistry and hematology are unremarkable. Patient's valproic acid level is 12.9, which is very low despite being on medication. I suspect the patient is noncompliant with his medication.Patient has not had any seizure activity. He was able to tolerate his valproate with no difficulty. At this time, the patient will be discharged. 11/30/18 03:25 I was called to bedside by the primary nurse. Patient was having another seizure. Dr. Tellez was at bedside to evaluate patient. Patient will be given 1 g of Cogentin. Patient will receive a gram of Keppra. Urine drug screen will be drawn and alcohol level will be drawn. 11/30/18 05:30 Urine drug screen shows marijuana in his system. Patient admits to smoking marijuana almost every day. 11/30/18 06:08 I discussed this case with Dr. Tellez, my attending physician. He is recommending the patient be admitted. Patient is awake, alert, and oriented. Due to the patient having multiple seizures through the night, the patient will be admitted. I will call dayshift hospitalist at 7:00 when they arrive. 11/30/18 07:35 I attempted to call the hospitalist. Will receive a call back. I have checked on the patient and he has not had a seizure. 11/30/18 07:52 Report was given to Dr. Tate. Patient will be admitted to the medical floor. - Vital Signs Vital signs: Temp Pulse Resp BP Pulse Ox 98.4 F 20 113/70 96 11/30/18 07:00 11/30/18 07:01 11/30/18 07:01 11/30/18 07:01 - Laboratory Result Diagrams: 11/29/18 21:42 11/29/18 21:42 Laboratory results interpreted by me: 11/29/18 11/29/18 21:42 21:42 MCV 98 H Lymph % (Auto) 48.7 H Glucose 129 H Valproic Acid 12.9 L Discharge - Discharge Clinical Impression: Seizure Condition: Stable Disposition: ADMITTED INPATIENT Admitting Provider: Lea (Hospitalist) Unit Admitted: Medical Floor
[2018-11-29 22:28] LABS: ALBUMIN 4.5 g/dL (3.5-5.0); ALKALINE PHOSPHATASE 51 U/L (38-126); ANION GAP 10 (5-19); ASPARTATE AMINO TRANSFERASE 33 U/L (17-59); BILIRUBIN,DIRECT 0.3 mg/dL (0.0-0.4); BILIRUBIN,TOTAL 0.5 mg/dL (0.2-1.3); BLOOD UREA NITROGEN 17 mg/dL (7-20); CALCIUM 10.1 mg/dL (8.4-10.2); CARBON DIOXIDE 26 mmol/L (22-30); CHLORIDE 105 mmol/L (98-107); GLUCOSE 129 mg/dL (75-110); POTASSIUM 4.9 mmol/L (3.6-5.0); TOTAL PROTEIN 7.3 g/dL (6.3-8.2)
[2018-11-29 22:29] LABS: ABSOLUTE BASOPHILS # (AUTO) 0.1 10^3/uL (0.0-0.2); ABSOLUTE LYMPHOCYTES (AUTO) 4.1 10^3/uL (0.5-4.7); ABSOLUTE MONOCYTES (AUTO) 0.5 10^3/uL (0.1-1.4); ABSOLUTE NEUT (AUTO) 3.7 10^3/uL (1.7-8.2); EOSINOPHILS % (AUTO) 0.4 % (0-6); HEMATOCRIT 44.6 % (37.9-51.0); HEMOGLOBIN 15.2 g/dL (13.5-17.0); LYMPHOCYTES % (AUTO) 48.7 % (13-45); MEAN CORPUSCULAR HEMOGLOBIN 33.2 pg (27.0-33.4); MEAN CORPUSCULAR VOLUME 98 fl (80-97); MONOCYTES % (AUTO) 5.6 % (3-13); PLATELET COUNT 230 10^3/uL (150-450); RED BLOOD COUNT 4.56 10^6/uL (4.35-5.55); RED CELL DISTRIBUTION WIDTH 13.9 % (11.5-14.0); SEGMENTED NEUTROPHILS % (AUTO) 44.3 % (42-78); TOTAL CELLS COUNTED % (AUTO) 100 %; WHITE BLOOD COUNT 8.4 10^3/uL (4.0-10.5)
[2018-11-29] MEDS ORDERED: DIVALPROEX SODIUM 250 MG TABLET.DR PO ONE (23:50)
[2018-11-29] MEDS ORDERED: NORMAL SALINE 1000 ML 1,000 ML IV ONE (23:50)
[2018-11-30] MEDS ORDERED: METOCLOPRAMIDE HCL INJ/PF 10 MG/2 ML SDV IV ONE (00:23)
--- NOTE | 2018-11-30 01:39 | RADIOLOGY REPORT (SQ) ---
CLINICAL HISTORY: vomiting; seizure COMPARISON: January 11, 2014. TECHNIQUE: CT HEAD WITHOUT IV CONTRAST on 11/30/2018 12:22 AM CDT This exam was performed according to our departmental dose-optimization program, which includes automated exposure control, adjustment of the mA and/or kV according to patient size and/or use of iterative reconstruction technique. FINDINGS: There is no acute hemorrhage, mass effect or midline shift. -white differentiation is preserved. There is no hydrocephalus. There is no significant volume loss for age. There is asymmetric set of hypodensities in the right frontal and right parietal periventricular white matter. The calvarium is intact. Orbits and globes are unremarkable. The paranasal sinuses are clear. Mastoid air cells are clear. IMPRESSION: No acute findings. No significant change.
[2018-11-30] MEDS ORDERED: LORAZEPAM INJ 2 MG/1 ML VIAL ONE (02:44)
[2018-11-30] MEDS ORDERED: LORAZEPAM INJ 2 MG/1 ML VIAL IV ONE (02:46)
[2018-11-30] MEDS ORDERED: LEVETIRACETAM 1000 MG/NACL-ISO 1,000 MG/100 ML RTUPB IV ONE (02:47)
[2018-11-30] MEDS ORDERED: BENZTROPINE MESYLATE INJ 2 MG/2 ML AMPULE IV ONE (03:19)
[2018-11-30 04:56] LABS: URINE AMPHETAMINES SCREEN NEGATIVE; URINE BARBITURATES SCREEN NEGATIVE; URINE BENZODIAZEPINES SCREEN NEGATIVE; URINE COCAINE SCREEN NEGATIVE; URINE MARIJUANA (THC) SCREEN UNCONFIRMED POSITIVE; URINE METHADONE SCREEN NEGATIVE; URINE PHENCYCLIDINE SCREEN NEGATIVE
[2018-11-30] MEDS ORDERED: MAG HYDROX/AL HYDROX/SIMETH SUSP 30 ML UDCUP PO PRN (09:13)
[2018-11-30] MEDS ORDERED: ONDANSETRON HCL INJ/PF 4 MG/2 ML SDV IV PRN (09:13)
[2018-11-30] MEDS ORDERED: MAGNESIUM HYDROXIDE SUSP 30 ML UDCUP PO PRN (09:13)
[2018-11-30] MEDS ORDERED: ACETAMINOPHEN 325 MG TABLET PO PRN (09:13)
[2018-11-30] MEDS ORDERED: NORMAL SALINE 1000 ML 1,000 ML IV PRN (09:13)
--- NOTE | 2018-11-30 09:13 | PDOC H&P ---
History of Present Illness Admission Date/PCP: 11/30/18 08:09 Patient complains of: Seizures History of Present Illness: GRANT DINH III is a 38 year old male with a history of brain abscess and vagus nerve stimulator. He noted that yesterday he had a seizure and reported to the emergency department. He was stable on discharge is being considered when he seized again. He was given Keppra and benzodiazepine therapy and referred to the hospitalist for admission. Past Medical History Cardiac Medical History: Reports: None Pulmonary Medical History: Reports: None EENT Medical History: Reports: Other - Poor dentition Neurological Medical History: Reports: Seizures Endocrine Medical History: Reports: None Renal/ Medical History: Reports: None Malignancy Medical History: Reports: None GI Medical History: Reports: None Musculoskeltal Medical History: Reports: None Skin Medical History: Reports: None Psychiatric Medical History: Reports: None Traumatic Medical History: Reports: None Hematology: Reports: None Infectious Medical History: Reports: Other Infectious History Note: Brain abscess requiring craniotomy Past Surgical History Past Surgical History: Reports: Other - Craniotomy and vagus nerve stimulator placement Social History Information Source: Patient Lives with: Family Smoking Status: Current Every Day Smoker Frequency of Alcohol Use: Occasional Hx Recreational Drug Use: No Hx Prescription Drug Abuse: No - Advance Directive Resuscitation Status: Full Code Family History Family History: Reviewed & Not Pertinent, Hypertension Parental Family History Reviewed: Yes Children Family History Reviewed: NA Sibling(s) Family History Reviewed.: Yes Medication/Allergy Home Medications: Divalproex Sodium [Depakote ER 500 mg Tab.sr] 2,000 mg PO QHS 11/30/18 Eslicarbazepine Acetate [Aptiom] 400 mg PO QHS MDD 1200MG 11/30/18 Eslicarbazepine Acetate [Aptiom] 800 mg PO QHS MDD 1200MG 11/30/18 Allergies/Adverse Reactions: No Known Allergies Allergy (Verified 07/26/17 16:12) Review of Systems All systems: reviewed and no additional remarkable complaints except as stated Eyes: PRESENT: visual disturbances - Occasional double vision post seizure Nose, Mouth, and Throat: PRESENT: other - Poor dentition Physical Exam Vital Signs: Temp Pulse Resp BP Pulse Ox 98.4 F 20 113/70 96 11/30/18 07:00 11/30/18 07:01 11/30/18 07:01 11/30/18 07:01 Intake & Output 11/29/18 11/30/18 12/01/18 06:59 06:59 06:59 Intake Total 1100 Balance 1100 Weight 54.431 kg General appearance: PRESENT: no acute distress, cooperative, thin, other - Slightly somnolent. He is postictal and was medicated. Head exam: PRESENT: atraumatic, normocephalic Eye exam: PRESENT: conjunctiva pink, EOMI. ABSENT: scleral icterus Ear exam: PRESENT: normal external ear exam. ABSENT: bleeding, drainage Mouth exam: PRESENT: dry mucosa, tongue midline Teeth exam: PRESENT: poor dentation Respiratory exam: PRESENT: clear to auscultation abhi, symmetrical, unlabored. ABSENT: accessory muscle use, rales, rhonchi, tachypnea, wheezes Cardiovascular exam: PRESENT: RRR, +S1, +S2. ABSENT: diastolic murmur, systolic murmur GI/Abdominal exam: PRESENT: normal bowel sounds, soft. ABSENT: distended, guarding, tenderness Rectal exam: PRESENT: deferred Gentrourinary exam: ABSENT: indwelling catheter Extremities exam: PRESENT: full ROM. ABSENT: joint swelling, pedal edema Musculoskeletal exam: PRESENT: full ROM, normal inspection. ABSENT: deformity, tenderness Neurological exam: PRESENT: awake, oriented to person, oriented to place, oriented to time, oriented to situation. ABSENT: alert - Slightly somnolent Psychiatric exam: PRESENT: appropriate affect. ABSENT: agitated, anxious Focused psych exam: PRESENT: other - Patient is post ictal. ABSENT: delusional, restlessness Skin exam: PRESENT: dry, warm. ABSENT: rash Results Laboratory Results: 11/29/18 21:42 11/29/18 21:42 11/29/18 11/29/18 21:42 21:42 WBC 8.4 RBC 4.56 Hgb 15.2 Hct 44.6 MCV 98 H MCH 33.2 MCHC 34.0 RDW 13.9 Plt Count 230 Seg Neutrophils % 44.3 Sodium 141.4 Potassium 4.9 Chloride 105 Carbon Dioxide 26 Anion Gap 10 BUN 17 Creatinine 0.89 Est GFR ( Amer) > 60 Glucose 129 H Calcium 10.1 Total Bilirubin 0.5 AST 33 Alkaline Phosphatase 51 Total Protein 7.3 Albumin 4.5 Impressions: Head CT 11/30/18 00:22 IMPRESSION: No acute findings. No significant change. Assessment and Plan - Diagnosis (1) Seizure Is this a current diagnosis for this admission?: Yes Plan: The patient has a history of seizure disorder ever since the brain abscess. His Depakote level was subtherapeutic at 12 (normal is 50-100). We are going to change him to Keppra 1 g twice daily. If he is seizure-free he will discharge tomorrow and follow-up with his neurologist who can then adjust his medications. - Time Time Spent with patient: 35 or more minutes Medications reviewed and adjusted accordingly: Yes Anticipated discharge: Home Within: within 24 hours
[2018-11-30] MEDS: FAMOTIDINE 20 MG TABLET PO SCH ×2 (11:01→21:59)
[2018-11-30] MEDS: LEVETIRACETAM 500 MG TABLET PO SCH ×2 (11:02→21:59)
[2018-11-30] MEDS: HEPARIN SOD (PORCINE) 5,000 UNIT/ML 1 ML VIAL SUBCUT SCH ×2 (16:39→21:59)
[2018-12-01] MEDS: HEPARIN SOD (PORCINE) 5,000 UNIT/ML 1 ML VIAL SUBCUT SCH ×2 (05:56→14:00)
[2018-12-01] MEDS: LEVETIRACETAM 500 MG TABLET PO SCH (09:49)
[2018-12-01] MEDS: FAMOTIDINE 20 MG TABLET PO SCH (09:49)
[2018-12-01 15:13] VITALS: BP 102/52
--- NOTE | 2018-12-01 15:49 | PDOC DISCHARGE SUMMARY ---
Impression - Admit/DC Date/PCP Admission Date/Primary Care Provider: 11/30/18 08:09 Discharge Date: 12/01/18 - Discharge Diagnosis (1) Seizure Is this a current diagnosis for this admission?: Yes - Additional Information Resuscitation Status: Full Code Discharge Diet: As Tolerated Discharge Activity: Activity As Tolerated Prescriptions: Levetiracetam [Keppra 500 mg Tablet] 1,000 mg PO Q12 #120 tablet Home Medications: Eslicarbazepine Acetate [Aptiom] 400 mg PO QHS MDD 1200MG 11/30/18 Eslicarbazepine Acetate [Aptiom] 800 mg PO QHS MDD 1200MG 11/30/18 Levetiracetam [Keppra 500 mg Tablet] 1,000 mg PO Q12 #120 tablet 12/01/18 History of Present Illiness History of Present Illness: GRANT DINH III is a 38 year old male with a history of brain abscess and vagus nerve stimulator. He noted that yesterday he had a seizure and reported to the emergency department. He was stable on discharge is being considered when he seized again. He was given Keppra and benzodiazepine therapy and referred to the hospitalist for admission. Hospital Course Hospital Course: He was taken off of Depakote and started on Keppra. He is been seizure-free overnight. His appetite is starting to come back. I have given him a prescription for Keppra and he is to get an appointment with his neurologist as soon as he can on Monday. His sister was in the room with him and I explained everything to her as well. His labs and examination were reassuring and he was discharged in good condition. Physical Exam Vital Signs: Temp Pulse Resp BP Pulse Ox 97.7 F 52 L 16 102/52 L 99 12/01/18 15:05 12/01/18 15:05 12/01/18 15:05 12/01/18 15:05 12/01/18 15:05 Intake & Output 11/30/18 12/01/18 12/02/18 06:59 06:59 06:59 Intake Total 1100 1000 240 Balance 1100 1000 240 Weight 54.431 kg 51 kg General appearance: PRESENT: no acute distress, cooperative, disheveled, thin Respiratory exam: PRESENT: clear to auscultation abhi, symmetrical, unlabored. ABSENT: accessory muscle use, chest wall tenderness, crackles, prolonged expiratory phas, rhonchi, tachypnea, wheezes Cardiovascular exam: PRESENT: RRR, +S1, +S2 Pulses: PRESENT: normal carotid pulses Vascular exam: PRESENT: normal capillary refill GI/Abdominal exam: PRESENT: normal bowel sounds, soft. ABSENT: distended, guarding, rebound, tenderness Extremities exam: ABSENT: clubbing, pedal edema Musculoskeletal exam: PRESENT: ambulatory, normal inspection. ABSENT: deformity Neurological exam: PRESENT: alert, awake, oriented to person, oriented to place, oriented to situation Psychiatric exam: PRESENT: appropriate affect, normal mood Skin exam: PRESENT: dry, warm Results Laboratory Results: WBC 8.4 10^3/uL (4.0-10.5) 11/29/18 21:42 RBC 4.56 10^6/uL (4.35-5.55) 11/29/18 21:42 Hgb 15.2 g/dL (13.5-17.0) 11/29/18 21:42 Hct 44.6 % (37.9-51.0) 11/29/18 21:42 MCV 98 fl (80-97) H 11/29/18 21:42 MCH 33.2 pg (27.0-33.4) 11/29/18 21:42 MCHC 34.0 g/dL (32.0-36.0) 11/29/18 21:42 RDW 13.9 % (11.5-14.0) 11/29/18 21:42 Plt Count 230 10^3/uL (150-450) 11/29/18 21:42 Lymph % (Auto) 48.7 % (13-45) H 11/29/18 21:42 [place] % (Auto) 5.6 % (3-13) 11/29/18 21:42 Eos % (Auto) 0.4 % (0-6) 11/29/18 21:42 Baso % (Auto) 1.0 % (0-2) 11/29/18 21:42 Absolute Neuts (auto) 3.7 10^3/uL (1.7-8.2) 11/29/18 21:42 Absolute Lymphs (auto) 4.1 10^3/uL (0.5-4.7) 11/29/18 21:42 Absolute Monos (auto) 0.5 10^3/uL (0.1-1.4) 11/29/18 21:42 Absolute Eos (auto) 0.0 10^3/uL (0.0-0.6) 11/29/18 21:42 Absolute Basos (auto) 0.1 10^3/uL (0.0-0.2) 11/29/18 21:42 Seg Neutrophils % 44.3 % (42-78) 11/29/18 21:42 Sodium 141.4 mmol/L (137-145) 11/29/18 21:42 Potassium 4.9 mmol/L (3.6-5.0) 11/29/18 21:42 Chloride 105 mmol/L (98-107) 11/29/18 21:42 Carbon Dioxide 26 mmol/L (22-30) 11/29/18 21:42 Anion Gap 10 (5-19) 11/29/18 21:42 BUN 17 mg/dL (7-20) 11/29/18 21:42 Creatinine 0.89 mg/dL (0.52-1.25) 11/29/18 21:42 Est GFR ( Amer) > 60 (>60) 11/29/18 21:42 Est GFR (MDRD) Non-Af > 60 (>60) 11/29/18 21:42 Glucose 129 mg/dL (75-110) H 11/29/18 21:42 Calcium 10.1 mg/dL (8.4-10.2) 11/29/18 21:42 Total Bilirubin 0.5 mg/dL (0.2-1.3) 11/29/18 21:42 Direct Bilirubin 0.3 mg/dL (0.0-0.4) 11/29/18 21:42 Neonat Total Bilirubin Not Reportable 11/29/18 21:42 Neonat Direct Bilirubin Not Reportable 11/29/18 21:42 Neonat Indirect Bili Not Reportable 11/29/18 21:42 AST 33 U/L (17-59) 11/29/18 21:42 ALT 17 U/L (<50) 11/29/18 21:42 Alkaline Phosphatase 51 U/L (38-126) 11/29/18 21:42 Total Protein 7.3 g/dL (6.3-8.2) 11/29/18 21:42 Albumin 4.5 g/dL (3.5-5.0) 11/29/18 21:42 Urine Opiates Screen NEGATIVE 11/30/18 04:15 Urine Methadone Screen NEGATIVE 11/30/18 04:15 Ur Barbiturates Screen NEGATIVE 11/30/18 04:15 Valproic Acid 12.9 ug/mL (50.0-120.0) L 11/29/18 21:42 Ur Phencyclidine Scrn NEGATIVE 11/30/18 04:15 Ur Amphetamines Screen NEGATIVE 11/30/18 04:15 U Benzodiazepines Scrn NEGATIVE 11/30/18 04:15 Urine Cocaine Screen NEGATIVE 11/30/18 04:15 U Marijuana (THC) Screen UNCONFIRMED POSITIVE 11/30/18 04:15 Serum Alcohol < 10 mg/dL (NONE DETECTED) 11/29/18 21:42 Impressions: Head CT 11/30/18 00:22 IMPRESSION: No acute findings. No significant change. Plan Time Spent: Greater than 30 Minutes Stroke Is this a Stroke Patient?: No Acute Heart Failure - Is this a Heart Failure Patient?: No
[2018-12-01] MEDS ORDERED: (PENDING PHARMACY ID) (Eslicarbazepine Acetate [Aptiom] 800 MG) PO SCH (22:00)
[2018-12-01] MEDS ORDERED: ESLICARBAZEPINE ACETATE 400 MG PO SCH (22:00)
--- NOTE | 2018-12-02 00:23 | EKG REPORT ---
SEVERITY:- NORMAL ECG - SINUS RHYTHM : Confirmed by: Leelee Fowler 02-Dec-2018 00:22:14
== END 2018-12-01 16:11 | disposition home or self-care (01) ==
LOC: ER 21:36 → INTOOBSV 11-30 08:09 → EH 11-30 08:09 → 4N 11-30 15:08
PROVIDERS: ADMIT Hospitalist; ATTEND Hospitalist
DX: G40.909 Epilepsy, unspecified, not intractable, without status epilepticus (principal); F17.200 Nicotine dependence, unspecified, uncomplicated; F12.90 Cannabis use, unspecified, uncomplicated
CPT/HCPCS: 93005; 99285; 96361; 96375; 96365; 36415 ×2; 80307 ×2; 85025; 80053; 80164; 70450; 93010; G0378 ×3; J0515; J1644; J2765; J2060; J2405; J7030; J1953

== ENCOUNTER 2019-07-17 00:48 | Emergency (ER) | payer OTHER, MEDICARE, MEDICAID | END 2019-07-17 01:05 | disposition left against medical advice (07) | LOC: ER 00:48 | DX: Z53.21 Procedure and treatment not carried out due to patient leaving prior to being seen by health care provider (principal) ==